=== PATIENT | male | born 1985 | race American Indian/Alaskan Native ===

== ENCOUNTER 2018-12-16 10:46 | Emergency (ER) | payer OTHER ==
[2018-12-16 11:11] VITALS: BP 115/74
[2018-12-16 12:00] LABS: Bilirubin,Urine NEG (Negative); Blood,Urine NEG (Negative); Color,Urine Yellow (Yellow); Mucus,Urine FEW /HPF; Protein,Urine <15 mg/dL mg/dL (Negative)
--- NOTE | 2018-12-16 14:11 | Emergency Department Report ---
ED Male HPI - General Chief complaint: Urogenital-Male Stated complaint: PAIN IN PRIVATE Time Seen by Provider: 12/16/18 14:01 Source: patient Mode of arrival: Ambulatory Limitations: No Limitations - History of Present Illness Initial comments: This is a 33-year-old healthy looking young man who presents ED complaining of right groin pain for the past week and a half. She states she was seen last week lost where he was ultrasound and urine tested which came back negative. Patient states that this sounded cysts on his Klonopin and told to follow-up with urologist. Patient states that his called her neurologist and has not been able to follow-up. Patient states that he was told to return to ED if pain worsened. Patient states that pain has worsened since he ran out of his pain medication and has not been able to go to work for the past for 5 days. Patient is presenting here to be evaluated and to be referred to urologist. He denies fevers/chills/nausea vomiting/abdominal pain/penile discharge/dysuria/hematuria/testicular swelling - Related Data Previous Rx's Medication Instructions Recorded Last Taken Type Acetaminophen/Codeine [Tylenol 1 tab PO Q6H PRN #12 tab 01/25/16 Unknown Rx /Codeine # 3 tab] Penicillin Vk [Veetids TAB] 500 mg PO QID #40 tablet 01/25/16 Unknown Rx Naproxen [Naprosyn] 500 mg PO BID #30 tablet 12/16/18 Unknown Rx Tramadol HCl [traMADol ER 100 MG] 100 mg PO Q8H #10 tab 12/16/18 Unknown Rx Allergies Allergy/AdvReac Type Severity Reaction Status Date / Time No Known Allergies Allergy Verified 12/16/18 10:59 ED Review of Systems ROS: Stated complaint: PAIN IN PRIVATE Other details as noted in HPI Comment: All other systems reviewed and negative ED Past Medical Hx - Past Medical History Previous Medical History?: No - Surgical History Past Surgical History?: No - Social History Smoking Status: Current Some Day Smoker Substance Use Type: None - Medications Home Medications: Home Medications Medication Instructions Recorded Confirmed Last Taken Type Acetaminophen/Codeine [Tylenol 1 tab PO Q6H PRN #12 tab 01/25/16 Unknown Rx /Codeine # 3 tab] Penicillin Vk [Veetids TAB] 500 mg PO QID #40 tablet 06/08/16 Unknown Rx Naproxen [Naprosyn] 500 mg PO BID #30 tablet 12/16/18 Unknown Rx Tramadol HCl [traMADol ER 100 MG] 100 mg PO Q8H #10 tab 12/16/18 Unknown Rx ED Physical Exam - General Limitations: No Limitations General appearance: alert, in no apparent distress - Head Head exam: Present: atraumatic, normocephalic - Eye Eye exam: Present: normal appearance - ENT ENT exam: Present: mucous membranes moist - Neck Neck exam: Present: normal inspection - Respiratory Respiratory exam: Present: normal lung sounds bilaterally. Absent: respiratory distress - Cardiovascular Cardiovascular Exam: Present: regular rate, normal rhythm. Absent: systolic murmur, diastolic murmur, rubs, gallop - GI/Abdominal GI/Abdominal exam: Present: soft, normal bowel sounds - Rectal Rectal exam: Present: deferred - exam: Present: testicular tenderness, circumcision. Absent: urethral discharge, scrotal swelling External exam: Present: normal external exam, other (no signs or hernia). Absent: erythema, swelling, lesions - Extremities Exam Extremities exam: Present: normal inspection - Back Exam Back exam: Present: normal inspection - Neurological Exam Neurological exam: Present: alert, oriented X3 - Psychiatric Psychiatric exam: Present: normal affect, normal mood - Skin Skin exam: Present: warm, dry, intact, normal color. Absent: rash ED Course Vital Signs 12/16/18 11:07 Temperature 98.1 F Pulse Rate 73 Respiratory 18 Rate Blood Pressure 115/74 [Right] O2 Sat by Pulse 99 Oximetry ED Medical Decision Making - Medical Decision Making 33-year-old male presents with right groin pain Urinalysis negative. Discussed findings with the patient. Discussed the patient give for fever all urologist in follow-up as soon as possible. Patient was requesting a work note to return to work today because he has missed work for about a week due to pain. Patient is in no acute respiratory distress. Patient is able to ambulate without any problems. Critical care attestation.: If time is entered above; I have spent that time in minutes in the direct care of this critically ill patient, excluding procedure time. ED Disposition Clinical Impression: Right groin pain Disposition: DC-01 TO HOME OR SELFCARE Is pt being admited?: No Does the pt Need Aspirin: No Condition: Stable Instructions: Groin Pain (ED), Groin Strain (ED) Additional Instructions: Make sure to follow up with the primary care physician as discussed. Take all your medications as you've been prescribed. If you have any worsening symptoms or develop new symptoms please return to ED immediately. Prescriptions: Naproxen [Naprosyn] 500 mg PO BID #30 tablet Tramadol HCl [traMADol ER 100 MG] 100 mg PO Q8H #10 tab Referrals: [facility] MD YAMIL [Primary Care Provider] - 3-5 Days PEREFCTO KEVIN MD [Staff Physician] - 3-5 Days ANGELI LEVINE MD [Staff Physician] - 3-5 Days AMANDA VELAZCO MD [Referring] - 3-5 Days FERMIN LYLE MD [Referring] - 3-5 Days LARRY MACHADO MD [Referring] - 3-5 Days Forms: Accompanied Note, Work/School Release Form(ED) Time of Disposition: 14:15
== END 2018-12-16 14:30 | disposition home or self-care (01) ==
LOC: ED 10:46
DX: R10.31 Right lower quadrant pain (principal); F17.200 Nicotine dependence, unspecified, uncomplicated
CPT/HCPCS: 81001; 99283